=== PATIENT | female | born 1995 | race Two or more races ===

== ENCOUNTER 2025-05-31 19:55 | Emergency (ER) | payer MEDICAID, OTHER ==
[~2025-05-31] VITALS: Ht 162.6 cm; Wt 75.4 kg
[2025-05-31] MEDS: ondansetron 4mg rapidly disintigrating tab PO ONE (21:21)
[2025-05-31] MEDS: morphine 4 MG/ML inj SYRINge IM ONE (21:22)
[2025-05-31] MEDS: ketorolac trometh 30MG/ML vial 30 MG/ML VIAL IM ONE (21:22)
--- NOTE | 2025-05-31 21:47 | Physician Documentation ---
History of Present Illness ~ Chief Complaint: Back Pain Stated Complaint: BACK PAIN Time Seen by MD: 20:44 HPI 30-year-old female presents to the ED after injuring her back today. She says that the she was region down to grab something and felt her back go out. Since then she has had excruciating lumbar pain. Denies any numbness or tingling or incontinence areolar red flag symptoms Day of Onset: May 31, 2025 Medication Reconciliation Allergies: Coded Allergies: No Known Allergies (Unverified , 05/31/25) Past Medical History Past Medical History: Asthma Past Surgical History: no surgical history Lives In: Home Review of Systems All Other Systems at this time: Reviewed and Negative ROS As stated above in the HPI, otherwise all systems are reviewed and negative. Physical Exam Physical Exam Vital Signs: Temperature: 97.9, Source: Oral, Heart Rate: 94, Respiratory Rate: 16, BP: 104/68, Pulse Oximetry: 100, Weight: 75.360 Oxygen Flow Rate: 0 Physical Exam General: Alert, no apparent distress. back: Tender to the right lumbar region via palpation Neurologic: Oriented x4. Psychiatric: Normal mood and affect. Skin: Normal color, warm and dry. No edema, no ecchymosis. Progress Results/Orders Results/Orders Completed Orders - WILEY STILES NP Ketorolac Trometh 30mg/Ml Vial (Toradol (05/31/25 21:10) Morphine 4mg/Ml Inj. (Morphine Inj.) (05/31/25 21:10) Ondansetron Disint. Tablet (Zofran Odt T (05/31/25 21:10) Medications Received in ER Medications (Trade) Dose Ordered Sig/Bebeto Route PRN Reason Start Time Stop Time Status Last Admin Dose Admin (Toradol inj. 30mg/ml) 30 mg ONCE ONCE IM 05/31/25 21:10 05/31/25 21:11 DC 05/31/25 21:22 30 MG (morphine inj.) 4 mg ONCE ONCE IM 05/31/25 21:10 05/31/25 21:11 DC 05/31/25 21:22 4 MG (Zofran ODT tablet) 4 mg ONCE ONCE PO 05/31/25 21:10 05/31/25 21:11 DC 05/31/25 21:21 4 MG Vital Signs 05/31/25 05/31/25 20:00 21:56 Temp 97.9 98.6 Pulse 94 92 Resp 16 18 B/P (MAP) 104/68 111/70 Pulse Ox 100 99 O2 Flow Rate 0 Medical Decision Making Findings Treated this patient for a lumbosacral strain. I do not see any reason to pursue further imaging as 1 shot of Toradol and morphine helped alleviate her symptoms. She did not report any red flag symptoms. Going to discharge her for outpatient therapy and further evaluation Differential Dx:Considerations: Include: AAA, Aortic dissection, , Appendicitis, Bowel obstruction, Cholelithiasis, Cholangitis, DJD, Ectopic , Fracture, Hepatitis, HNP, Musculoskeletal pain, Pancreatitis, Pyelonephritis, Strain, Urinary obstruction, Urolithiasis, Ovarian torsion, Other Departure Disposition: 01 HOME / SELF CARE / HOMELESS Impression: Primary Impression: Strain of lumbar region Discharge Instructions: Lumbosacral Strain Referrals: NO PRIMARY CARE PROVIDER (PCP) Signature Scribe Signature: r Attestation: Scribed for Wiley [employer] by Wiley Castrejon NP . 05/31/25 21:44 WILEY STILES NP May 31, 2025 21:47
[2025-05-31 21:56] VITALS: BP 111/70; PULSE 92; RESP 18; TEMP 98.6; O2SAT 99
== END 2025-05-31 21:57 | disposition home or self-care (01) ==
LOC: ER 19:56
DX: S39.012A Strain of muscle, fascia and tendon of lower back, initial encounter (principal); J45.909 Unspecified asthma, uncomplicated; X58.XXXA Exposure to other specified factors, initial encounter; Y93.89 Activity, other specified; Y92.89 Other specified places as the place of occurrence of the external cause; Y99.8 Other external cause status
CPT/HCPCS: 96372; 99284; J1885; J2270